=== PATIENT | female | born 2000 | race Caucasian/White ===

== ENCOUNTER 2022-01-03 16:52 | Inpatient (IN) ==
[2022-01-03] MEDS ORDERED: SODIUM CHLORIDE 0.9% 500 ML IV ONE (17:45)
--- NOTE | 2022-01-03 17:50 | Emergency Department Note ---
Impression & Plan Acute blood loss anemia, Ulcerative colitis with rectal bleeding, Right-sided chest pain, COVID Admit to the [facility] ED Provider Note NAME: KAT ECHOLS AGE: 21 SEX: F ARRIVES VIA: Walk-In INFORMANT: Patient ED PROVIDER(S): Noy Alonzo DO CHIEF COMPLAINT: Right-sided chest pain PLAN: Disposition: Admit to the [facility] Condition: Stable MEDICAL DECISION MAKING: This is a 21-year-old female patient presents to the emergency department with right-sided chest pain. The patient had a COVID-positive test today. She has a history of ulcerative colitis and takes Humira. She contacted the nurse helpline and explained that she was having some chest pain right-sided greater than left and they directed her here for evaluation. Patient is vaccinated against COVID and had COVID approximately 7 months ago. The patient had a negative D-dimer to rule out PE but was noted to be anemic with a hemoglobin of 8. In reviewing records from [facility], the patient's recent hemoglobin was 8.3. The patient continues to have bright red blood from her rectum and continued abdominal pain. She was prescribed budesonide and mesalamine but had not started taking them yet. The patient was typed and crossed here in the emergency department and consented for blood transfusion. I have discussed the case with [facility] and they will evaluate for further management. Triage Nursing notes reviewed and agree with them. Vital Signs: reviewed and remarkable for tachycardia Differential diagnosis: PE, costochondritis, pneumonia, anemia, COVID-19 ER treatment provided: IV normal saline IV packed red blood cell transfusion Diagnostics interpreted by me: ECG: Normal sinus rhythm at a rate of [address] segment elevation or signs of ischemia. There is no ectopy Cardiac Monitoring: Sinus tachycardia at 103 Laboratory studies: See below Imaging studies: As per radiology Portable chest x-ray: See repor HPI: 21/F arrives for evaluation of right-sided chest pain. The patient developed a cough, sore throat, nasal congestion 3 days ago. She took a COVID test today and found that was positive. She began to have some chest pain with the right side being worse than the left. She called a nurse helpline and they suggested she come to the emergency department for evaluation. The patient is vaccinated against COVID-19 and has received a booster shot. She did test positive for COVID approximately 7 months ago and again today. ROS: See above HPI for pertinent positives & negatives. A total of 10 systems reviewed and were otherwise negative. 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 HOME MEDICATIONS:See list ALLERGIES:None VITALS:See Below PHYSICAL EXAMINATION: HEENT: Head - normocephalic and atraumatic. Pupils are equal, round, and reactive to light. Extraocular eye muscles are intact, and sclera are anicteric. Nose - moist nasal mucosa without discharge. Mouth - moist buccal mucosa. Oropharynx is nonerythematous and there is no tonsillar exudate or edema noted. Neck: Supple; no cervical lymphadenopathy or thyromegaly Heart: Regular rate and rhythm. There is a normal S1 and S2 with no murmurs, clicks, or gallops appreciated. Lungs: Clear to auscultation bilaterally with no wheezes, rales, or rhonchi. Abdomen: Soft, completely nontender, nondistended, with good bowel sounds. Ther e are no palpable pulsatile masses or hepatosplenomegaly. There is no guarding, rigidity, or rebound noted. Extremities: No evidence of cyanosis, clubbing, or edema. There are easily palpable peripheral pulses. Skin: Pale, warm and dry with good turgor and no rashes. ED COURSE: Times/Reassessments: 1700: The patient was evaluated in room A4. An order was placed for continuous cardiac monitoring. The patient is in sinus tachycardia at 103. A twelve-lead EKG was obtained as described above. An IV lock was initiated and labs were drawn as above. Patient had a portable chest x-ray performed. The patient was typed and crossed for 2 units of packed red blood cells. I discussed the case with Dr. Monaco who will evaluate the patient for further management. Noy Alonzo DO Past Med/Surg History Medical History Acute blood loss anemia Anxiety Ulcerative colitis with rectal bleeding Social History Smoking Status: Current every day smoker Hx Alcohol Use: Yes Alcohol type: hard liquor Hx Substance Use: No Preferred Language: Kinyarwanda Communication Ability: Effective Taper Machine Required: No Beliefs That Will Affect Care: None Current Living Situation: Other Current Living Situation Comment: Apartment with roommates Other Information That Helps Us Care for You: No Feels Safe at Home: Yes Safety Concerns: Feels Safe At This Time Assistive Devices: None Allergies Allergies Allergy/AdvReac Type Severity Reaction Status Date / Time No Known Allergies Allergy Unverified 01/03/22 18:28 Home Meds Home Medications Medication Instructions Recorded Confirmed adalimumab 40 mg/0.4 mL 40 mg subcut .EVERY 2 WEEKS 01/03/22 01/03/22 subcutaneous pen kit (Humira(CF) Pen) budesonide 9 mg tablet,delayed and 9 mg PO DAILY 01/03/22 01/03/22 extended release lisdexamfetamine 40 mg capsule 40 mg PO DAILY 01/03/22 01/03/22 (Vyvanse) mesalamine 1.2 gram tablet,delayed 1.2 g PO UD 01/03/22 01/03/22 release sertraline 100 mg tablet 100 mg PO DAILY 01/03/22 01/03/22 Results & Data (ED) Vital Signs Vital Signs - 24 hr 01/03/22 16:55 01/03/22 17:36 01/03/22 18:30 Temperature 36.3 C L Temperature Source Temporal Artery Scan Pulse Rate 105 H Pulse Rate from SpO2 Sensor Pulse Rhythm Regular Pulse Strength Normal Respiratory Rate 20 Respiratory Effort / Characteristics Non-Labored Spontaneous Respiratory Depth Normal Respiratory Pattern Regular Blood Pressure 114/74 101/65 Blood Pressure Mean 87 77 Blood Pressure Position Sitting Pulse Oximetry 99 Oxygen Delivery Method Room Air Room Air Sepsis Recent Fever Within 48 Hours No Sepsis New/Unexplained Change in Mental Status No Sepsis Action Taken by Nursing No Action Required 01/03/22 18:30 01/03/22 19:00 01/03/22 19:00 Temperature Temperature Source Pulse Rate 82 79 Pulse Rate from SpO2 Sensor 82 79 Pulse Rhythm Pulse Strength Respiratory Rate 12 17 Respiratory Effort / Characteristics Respiratory Depth Respiratory Pattern Blood Pressure 103/66 Blood Pressure Mean 78 Blood Pressure Position Pulse Oximetry 100 99 Oxygen Delivery Method Sepsis Recent Fever Within 48 Hours Sepsis New/Unexplained Change in Mental Status Sepsis Action Taken by Nursing 01/03/22 20:00 Temperature Temperature Source Pulse Rate 80 Pulse Rate from SpO2 Sensor Pulse Rhythm Pulse Strength Respiratory Rate 24 Respiratory Effort / Characteristics Respiratory Depth Respiratory Pattern Blood Pressure 115/74 Blood Pressure Mean 87 Blood Pressure Position Pulse Oximetry 97 Oxygen Delivery Method Sepsis Recent Fever Within 48 Hours Sepsis New/Unexplained Change in Mental Status Sepsis Action Taken by Nursing Laboratory Data Result diagrams: 01/04/22 06:02 01/04/22 06:02 Lab Results 01/03/22 01/03/22 01/03/22 Range/Units 17:36 17:36 17:36 WBC 5.93 (4.8-10.8) K/ul RBC 4.29 (3.93-5.22) M/uL Hgb 8.0 L (12.0-16.0) g/dl Hct 27.8 L (34.1-44.9) % MCV 64.8 L (80.0-100.0) fL MCH 18.6 L (25.0-34.0) pg MCHC 28.8 L (32.0-36.0) g/dL RDW Std Deviation 44.3 (36.4-46.3) fL RDW Coeff of Dulce 19.3 H (11.5-14.5) % Plt Count 405 H (130-400) K/uL MPV 8.5 L (9.4-12.3) fL Immature Gran % (Auto) 0.2 % Neut % (Auto) 67.0 % Lymph % (Auto) 16.4 % [place] % (Auto) 15.3 % Eos % (Auto) 0.8 % Baso % (Auto) 0.3 % Neut # (Auto) 3.97 (1.4-6.5) K/uL Lymph # (Auto) 0.97 L (1.2-3.4) K/uL [place] # (Auto) 0.91 H (0.24-0.82) K/uL Eos # (Auto) 0.05 (0-0.50) K/uL Baso # (Auto) 0.02 (0-0.2) K/uL Immature Gran # (Auto) 0.01 (0.00-0.02) K/uL Polychromasia 1+ Hypochromasia Present Microcytosis Present ESR (0-20) mm/hr D-Dimer 410 (0-500) ug/L FEU Sodium 140 (136-145) mmol/L Potassium 3.3 L (3.5-5.1) mmol/L Chloride 106 (98-107) mmol/L Carbon Dioxide 28 (21-32) mmol/L Anion Gap 6 (3-11) BUN 5 L (6-23) mg/dl Creatinine 0.56 L (0.6-1.2) mg/dl Est Cr Clr Drug Dosing 138.4 ml/min Est GFR ( Amer) > 150.0 ml/min Est GFR (Non-Af Amer) 134.2 ml/min BUN/Creatinine Ratio 8.9 L (10-20) Glucose 112 H (70-99(Fasting)) mg/dl Calcium 9.0 (8.5-10.1) mg/dl Phosphorus 3.0 (2.5-4.9) mg/dl Magnesium 1.7 (1.7-2.4) mg/dl Iron (35-150) mcg/dl Transferrin (200-360) mg/dl Total Bilirubin 0.3 (0.2-1.0) mg/dl AST 20 (13-39) U/L ALT 13 (7-52) U/L Alkaline Phosphatase 54 (34-104) U/L Troponin I High Sens 2.8 (0-14) pg/ml Total Protein 7.0 (6.0-8.3) gm/dl Albumin 3.9 (3.4-5.0) gm/dl Globulin 3.1 (2.5-4.0) gm/dl Albumin/Globulin Ratio 1.3 (0.9-2) Lipase 18 (11-82) U/L SARS-CoV-2, RNA, NAAT (NEGATIVE) Blood Type Antibody Screen Crossmatch 01/03/22 01/03/22 01/03/22 Range/Units 17:36 17:48 19:30 WBC (4.8-10.8) K/ul RBC (3.93-5.22) M/uL Hgb (12.0-16.0) g/dl Hct (34.1-44.9) % MCV (80.0-100.0) fL MCH (25.0-34.0) pg MCHC (32.0-36.0) g/dL RDW Std Deviation (36.4-46.3) fL RDW Coeff of Dulce (11.5-14.5) % Plt Count (130-400) K/uL MPV (9.4-12.3) fL Immature Gran % (Auto) % Neut % (Auto) % Lymph % (Auto) % [place] % (Auto) % Eos % (Auto) % Baso % (Auto) % Neut # (Auto) (1.4-6.5) K/uL Lymph # (Auto) (1.2-3.4) K/uL [place] # (Auto) (0.24-0.82) K/uL Eos # (Auto) (0-0.50) K/uL Baso # (Auto) (0-0.2) K/uL Immature Gran # (Auto) (0.00-0.02) K/uL Polychromasia Hypochromasia Microcytosis ESR 37 H (0-20) mm/hr D-Dimer (0-500) ug/L FEU Sodium (136-145) mmol/L Potassium (3.5-5.1) mmol/L Chloride (98-107) mmol/L Carbon Dioxide (21-32) mmol/L Anion Gap (3-11) BUN (6-23) mg/dl Creatinine (0.6-1.2) mg/dl Est Cr Clr Drug Dosing ml/min Est GFR ( Amer) ml/min Est GFR (Non-Af Amer) ml/min BUN/Creatinine Ratio (10-20) Glucose (70-99(Fasting)) mg/dl Calcium (8.5-10.1) mg/dl Phosphorus (2.5-4.9) mg/dl Magnesium (1.7-2.4) mg/dl Iron < 10 L (35-150) mcg/dl Transferrin 343 (200-360) mg/dl Total Bilirubin (0.2-1.0) mg/dl AST (13-39) U/L ALT (7-52) U/L Alkaline Phosphatase (34-104) U/L Troponin I High Sens (0-14) pg/ml Total Protein (6.0-8.3) gm/dl Albumin (3.4-5.0) gm/dl Globulin (2.5-4.0) gm/dl Albumin/Globulin Ratio (0.9-2) Lipase (11-82) U/L SARS-CoV-2, RNA, NAAT POSITIVE A* (NEGATIVE) Blood Type Antibody Screen Crossmatch 01/03/22 Range/Units 19:55 WBC (4.8-10.8) K/ul RBC (3.93-5.22) M/uL Hgb (12.0-16.0) g/dl Hct (34.1-44.9) % MCV (80.0-100.0) fL MCH (25.0-34.0) pg MCHC (32.0-36.0) g/dL RDW Std Deviation (36.4-46.3) fL RDW Coeff of Dulce (11.5-14.5) % Plt Count (130-400) K/uL MPV (9.4-12.3) fL Immature Gran % (Auto) % Neut % (Auto) % Lymph % (Auto) % [place] % (Auto) % Eos % (Auto) % Baso % (Auto) % Neut # (Auto) (1.4-6.5) K/uL Lymph # (Auto) (1.2-3.4) K/uL [place] # (Auto) (0.24-0.82) K/uL Eos # (Auto) (0-0.50) K/uL Baso # (Auto) (0-0.2) K/uL Immature Gran # (Auto) (0.00-0.02) K/uL Polychromasia Hypochromasia Microcytosis ESR (0-20) mm/hr D-Dimer (0-500) ug/L FEU Sodium (136-145) mmol/L Potassium (3.5-5.1) mmol/L Chloride (98-107) mmol/L Carbon Dioxide (21-32) mmol/L Anion Gap (3-11) BUN (6-23) mg/dl Creatinine (0.6-1.2) mg/dl Est Cr Clr Drug Dosing ml/min Est GFR ( Amer) ml/min Est GFR (Non-Af Amer) ml/min BUN/Creatinine Ratio (10-20) Glucose (70-99(Fasting)) mg/dl Calcium (8.5-10.1) mg/dl Phosphorus (2.5-4.9) mg/dl Magnesium (1.7-2.4) mg/dl Iron (35-150) mcg/dl Transferrin (200-360) mg/dl Total Bilirubin (0.2-1.0) mg/dl AST (13-39) U/L ALT (7-52) U/L Alkaline Phosphatase (34-104) U/L Troponin I High Sens (0-14) pg/ml Total Protein (6.0-8.3) gm/dl Albumin (3.4-5.0) gm/dl Globulin (2.5-4.0) gm/dl Albumin/Globulin Ratio (0.9-2) Lipase (11-82) U/L SARS-CoV-2, RNA, NAAT (NEGATIVE) Blood Type O Positive Antibody Screen NEGATIVE Crossmatch See Detail Administered Medications Budesonide (Budesonide Ec 3 Mg Cap) 9 mg PO QAM ANKUSH Stop: 02/03/22 08:59 Last Admin: 01/04/22 07:58 Dose: 9 mg Documented By: RANDI Iron Sucrose 400 mg/ Sodium (Chloride) 270 mls @ 108 mls/hr IV TODAY@1200 ANKUSH Stop: 01/04/22 14:29 Last Admin: 01/04/22 12:00 Dose: 108 mls/hr Documented By: RANDI Melatonin (Melatonin 3 Mg Tab) 3 mg PO HS PRN PRN Reason: Sleep Stop: 02/02/22 23:41 Last Admin: 01/04/22 00:13 Dose: 3 mg Documented By: FLORY Mesalamine (Mesalamine 800 Mg Tabcr) 800 mg PO TID ANKUSH Stop: 02/03/22 08:59 Last Admin: 01/04/22 07:58 Dose: 800 mg Documented By: RANDI Miscellaneous (Vyvanse~Order Awaiting Action) 1 each N/A QS ANKUSH Stop: 02/03/22 07:59 Last Admin: 01/04/22 10:38 Dose: Not Given Documented By: RANDI Sertraline HCl (Sertraline Hcl 100 Mg Tablet) 100 mg PO DAILY ANKUSH Stop: 02/03/22 08:59 Last Admin: 01/04/22 07:58 Dose: 100 mg Documented By: RANDI Discontinued Medications Sodium Chloride (Nss) 500 mls @ 999 mls/hr IV .Q31M ONE Stop: 01/03/22 18:15 Last Infusion: 01/03/22 19:06 Dose: 0 mls/hr Documented By: Admin: 01/03/22 18:14 Dose: 999 mls/hr Documented By: GASTON Potassium Chloride (Potassium Chloride Crtab 20 Meq Tabcr) 40 meq PO NOW STA Stop: 01/03/22 19:51 Last Admin: 01/03/22 20:28 Dose: 40 meq Documented By: KMJohnny Imaging Data Radiologist's Impression: Chest X-Ray 01/03/22 17:36 XR chest 1V portable CLINICAL HISTORY: Atypical chest pain. COMPARISON STUDY: No previous studies for comparison. FINDINGS: Lung volumes are normal. Lungs are clear. There is no pneumothorax or pleural effusion. Cardiac size is normal. Mediastinal contours are normal. There is no evidence for pulmonary edema. IMPRESSION: No acute cardiopulmonary findings. ACT 112: Negative or not required by law. Electronically signed by: Bob Saunders M.D. 01/03/2022 6:57 PM Discharge Plan Visit Data Chief Complaint: Illness Stated Complaint: CHEST PAINS, COUGH, CONGESTED, COVID POSITIVE ED Provider: Noy Alonzo Discharge Problem: Acute blood loss anemia, Ulcerative colitis with rectal bleeding, Right-sided chest pain, COVID Patient Disposition: Admitted As Inpatient Discharge Instructions Interventions: ED Discharge Assessment Last Done: 01/03/22 21:31 : Ulcerative colitis with rectal bleeding Qualifiers: Ulcerative colitis location: unspecified ulcerative colitis location Qualified Code(s): K51.911 - Ulcerative colitis, unspecified with rectal bleeding
[2022-01-03 18:12] LABS: D Dimer 410 ug/L FEU (0-500)
[2022-01-03 18:25] LABS: Alanine Aminotransferase 13 U/L (7-52); Albumin Globulin Ratio 1.3 (0.9-2); Albumin Level 3.9 gm/dl (3.4-5.0); Alkaline Phosphatase 54 U/L (34-104); Anion Gap 6 (3-11); Aspartate Aminotransferase 20 U/L (13-39); BUN Creatinine Ratio 8.9 (10-20); Bilirubin,Total 0.3 mg/dl (0.2-1.0); Blood Urea Nitrogen 5 mg/dl (6-23); Carbon Dioxide 28 mmol/L (21-32); Chloride 106 mmol/L (98-107); Creatinine Clr Calc Pharmacy 138.4 ml/min; Est GFR (African American) > 150.0 ml/min; Est GFR (Non-African American) 134.2 ml/min; Globulin 3.1 gm/dl (2.5-4.0); Glucose 112 mg/dl (70-99(Fasting)); Lipase 18 U/L (11-82); Potassium 3.3 mmol/L (3.5-5.1); Sodium 140 mmol/L (136-145)
[2022-01-03 18:26] LABS: Troponin I High Sensitivity 2.8 pg/ml (0-14)
[2022-01-03 18:51] LABS: Basophils # (auto) 0.02 K/uL (0-0.2); Basophils % (auto) 0.3 %; Eosinophils # (auto) 0.05 K/uL (0-0.50); Eosinophils % (auto) 0.8 %; Hematocrit (blood only) 27.8 % (34.1-44.9); Hypochromasia Present; Immature Granulocytes # (auto) 0.01 K/uL (0.00-0.02); Immature Granulocytes % (auto) 0.2 %; Lymphocytes # (auto) 0.97 K/uL (1.2-3.4); Lymphocytes % (auto) 16.4 %; Mean Corpuscular Hemoglobin 18.6 pg (25.0-34.0); Mean Corpuscular Hgb Conc 28.8 g/dL (32.0-36.0); Mean Corpuscular Volume 64.8 fL (80.0-100.0); Mean Platelet Volume 8.5 fL (9.4-12.3); Microcytosis Present; Monocytes # (auto) 0.91 K/uL (0.24-0.82); Monocytes % (auto) 15.3 %; Neutrophils # (auto) 3.97 K/uL (1.4-6.5); Platelet Count 405 K/uL (130-400); Polychromasia 1+; RDW Coefficient of Variation 19.3 % (11.5-14.5); RDW Standard Deviation 44.3 fL (36.4-46.3); Red Blood Count 4.29 M/uL (3.93-5.22); White Blood Count 5.93 K/ul (4.8-10.8)
--- NOTE | 2022-01-03 18:58 | XRay Report ---
XR chest 1V portable CLINICAL HISTORY: Atypical chest pain. COMPARISON STUDY: No previous studies for comparison. FINDINGS: Lung volumes are normal. Lungs are clear. There is no pneumothorax or pleural effusion. Car diac size is normal. Mediastinal contours are normal. There is no evidence for pulmonary edema. IMPRESSION: No acute cardiopulmonary findings. ACT 112: Negative or not required by law. Electronically signed by: Bob Saunders M.D. 01/03/2022 6:57 PM
[2022-01-03] MEDS ORDERED: SODIUM CHLORIDE 0.9% 250 ML IV PRN (19:41)
[2022-01-03] MEDS ORDERED: POTASSIUM CHLORIDE CRTAB 20 MEQ TABCR PO STA (19:50)
--- NOTE | 2022-01-03 19:51 | History & Physical Report ---
Date of Service January 03, 2022 Assessment & Plan (1) Acute blood loss anemia: Plan: -Admit to med/surge -Patient is currently afebrile, hemodynamically stable, and stable on room air -acute blood loss anemia is likely due to her ongoing UC flare -Hgb is currently 8.0, unsure of patient's previous baseline -CBC from today showing a microcytic/hypochromic anemia most likely secondary to iron deficiency as well -Ordering Iron studies -Monitor AM CBC and transfuse as needed; patient was consented and type & screen was ordered -Will start her Budesonide and mesalamine tonight and monitor for improvement, if she is not improving can consider rectal mesalamine, oral glucocorticoids, and GI cosult (2) Ulcerative colitis with rectal bleeding: Plan: -See acute blood loss anemia -Initiate Budesonide 9mg po daily -Discussed with Pharmacy - will treat with Mesalamine 800mg po TID as indicated for moderate active UC flare (3) COVID: Plan: -Tested positive on 2 home tests and in PCR today -Stable on room air -Only needs symptomatic treatment at this time -tylenol for pain/fever, Robitussin for cough -Ordered ferritin, ESR, CRP, follow-up with results (4) Hypokalemia: Plan: -Noted to be at 3.3 today -Giving PO KCL -Monitor am electrolytes on BMP and replete as needed (5) Right-sided chest pain: Plan: -Patient has reproducible right chest/sternal pain which developed after her cough started -Likely musculoskeletal from her cough and history or arthritis -Will give tylenol and monitor for improvement in symptoms (6) Anxiety: Plan: -Patient is on sertraline and Vyvanse Plan The patient was seen with and discussed with Dr. Monaco at the time of the exam History of Present Illness Chief Complaint: Right-sided chest pain Primary Care Provider: [facility] Patricia is a 21 year old female with a PMH significant for Ulcerative Colitis (previously on Humira), arthritis, and anxiety who presented to the [facility] ED on 01/03/22 with a chief complaint of right-sided chest pain. Of note, the patient was positive when taking a home covid test today. In the Ed the patient was found to be afebrile, hemodynamically stable, and stable on room air. In the ED the patient was found to have a microcytic/hypochromic anemia, potassium of 3.3, and to be covid positive. Chest xray was noted to be negative for acute findings. At the time of the exam the patient was resting in bed in no acute distress. She states that she has been dealing with a UC flare and went to her PCP on 01/01. She states that he prescribed her mesalamine and budesonide but she has not had a chance to start them yet. She is no longer on Humira due to her having Humira antibodies. She is currently have approximately 5 bloody bowel movements daily. She states that she developed a productive cough and that her sputum is white to yellow. When she woke up this AM she developed right chest pain which is exacerbated with cough and deep inspiration. Allergies Allergy/AdvReac Type Severity Reaction Status Date / Time No Known Allergies Allergy Unverified 01/03/22 18:28 Home Medications Medication Instructions Recorded Confirmed Type adalimumab 40 mg/0.4 mL 40 mg subcut .EVERY 2 WEEKS 01/03/22 01/03/22 History subcutaneous pen kit (Humira(CF) Pen) budesonide 9 mg tablet,delayed and 9 mg PO DAILY 01/03/22 01/03/22 History extended release lisdexamfetamine 40 mg capsule 40 mg PO DAILY 01/03/22 01/03/22 History (Vyvanse) mesalamine 1.2 gram tablet,delayed 1.2 g PO UD 01/03/22 01/03/22 History release sertraline 100 mg tablet 100 mg PO DAILY 01/03/22 01/03/22 History Past Med/Surg History Medical History Acute blood loss anemia Anxiety Ulcerative colitis with rectal bleeding Social History Smoking Status: Current every day smoker Hx Alcohol Use: Yes Alcohol type: hard liquor Hx Substance Use: No Preferred Language: Icelandic Communication Ability: Effective Blocking Machine Operator Required: No Beliefs That Will Affect Care: None Current Living Situation: Other Current Living Situation Comment: Apartment with roommates Other Information That Helps Us Care for You: No Feels Safe at Home: Yes Safety Concerns: Feels Safe At This Time Assistive Devices: Glasses Review of Systems Review of Systems: Denies current fever, chills, headache, changes in vision, hearing, taste, and smell, SOB, cough, vomiting, hematemesis, melena, dysuria, hematuria, and recent falls. All systems have been reviewed and are otherwise negative. Physical Exam Physical Exam: Physical Exam: General: In no acute distress, stated age, well-nourished, good hygiene HEENT: Normocephalic, atraumatic, no scleral icterus, pupils around round, symmetrical, and reactive to light, moist mucus membranes, trachea midline, no thyromegaly Chest/Pulm: Tenderness to palpation over the right upper chest and sternum, No respiratory distress, symmetrical chest expansion, clear breath sounds throughout Cardiac: RRR, no murmurs noted Abdomen: Negative for ascites and bruising, normoactive bowel sounds, soft, non-tender to palpation throughout Musculoskeletal: Symmetrical and without signs of acute trauma, upper and lower extremities with full ROM, no atrophy, spasticity, or flaccidity Extremities: Radial, dorsalis pedis, and posterior tibial pulses are intact and symmetrical, no edema noted in the BL LE's Skin: Warm, dry, no rashes , lesions, or scars noted Neuro: Alert and oriented to person, place, month, year, and president, no focal defects, CN II-XII tested and intact, finger to nose test negative, no tremors noted Psych: No acute distress, calm and cooperative during the exam Results & Data Results & Data ([facility]) Vital Signs (Past 12 Hours) Vital Signs Temp Pulse Resp BP Pulse Ox O2 Del Method 01/03/22 19:00 79 17 99 01/03/22 19:00 103/66 01/03/22 18:30 82 12 100 01/03/22 18:30 101/65 01/03/22 17:36 Room Air 01/03/22 16:55 36.3 C L 105 H 20 114/74 99 Room Air Laboratory Results Abnormal lab results 01/03/22 01/03/22 Range/Units 17:36 17:36 Hgb 8.0 L (12.0-16.0) g/dl Hct 27.8 L (34.1-44.9) % MCV 64.8 L (80.0-100.0) fL MCH 18.6 L (25.0-34.0) pg MCHC 28.8 L (32.0-36.0) g/dL RDW Coeff of Dulce 19.3 H (11.5-14.5) % Plt Count 405 H (130-400) K/uL MPV 8.5 L (9.4-12.3) fL Lymph # (Auto) 0.97 L (1.2-3.4) K/uL [place] # (Auto) 0.91 H (0.24-0.82) K/uL Potassium 3.3 L (3.5-5.1) mmol/L BUN 5 L (6-23) mg/dl Creatinine 0.56 L (0.6-1.2) mg/dl BUN/Creatinine Ratio 8.9 L (10-20) Glucose 112 H (70-99(Fasting)) mg/dl Diagnostic Findings Chest X-Ray 01/03/22 17:36 XR chest 1V portable CLINICAL HISTORY: Atypical chest pain. COMPARISON STUDY: No previous studies for comparison. FINDINGS: Lung volumes are normal. Lungs are clear. There is no pneumothorax or pleural effusion. Cardiac size is normal. Mediastinal contours are normal. There is no evidence for pulmonary edema. IMPRESSION: No acute cardiopulmonary findings. ACT 112: Negative or not required by law. Electronically signed by: Bob Saunders M.D. 01/03/2022 6:57 PM ECG Additional Comments: Normal sinus rhythm Cannot rule out Anterior infarct , age undetermined Abnormal ECG No previous ECGs available Code Status & VTE Plan Code Status Full code VTE Prophylaxis Plan VTE Prophylaxis will be ordered: Yes Supervising Physician Co-Signing Physician Notes Patient seen and examined, chart reviewed, case discussed with KATHRINE Estrada and I agree with the assessment and plan as above. In brief, patient is a 21yo female with UC presenting with ongoing UC flare and Covid-19 infection. She follows with GI near her home town, last seen on 01/01/22 - was given prescription for Mesalamine and Budesonide which she has yet to start. No SOB. She does have some reproducible right sided pleuritic chest pain that is worse with cough. Patient afebrile, HD stable, Nontoxic in appearance Skin - warm, dry, intact, no rashes HEENT - NC/AT, PERRL, MMM, no oral ulcers Heart - +S1/S2, regular, no m/r/g Lungs - CTA Abdomen is soft, NT/ND Labs and images reviewed Microcytic anemia Platelet =405 Assessment/Plan -Initiate Mesalamine and budesonide -Monitor Covid symptoms -Transfuse if Hgb < 7, ongoing bleed -Iron studies pending - may benefit from IV Venofer -Remainder as above PG Care Time/CCT Total # of Minutes Spent Total Time Spent with Patient: Total time spent is greater than 50% in coordination of care (as documented) at patient's floor/unit and/or counseling patient: [place] [address] Initial Inpt Care Lvl 3 Patient Type New Medical Decision Making Straight Forward Diagnoses Acute blood loss anemia D62 Ulcerative colitis with rectal bleeding K51.911 Ulcerative colitis location: unspecified ulcerative colitis location COVID U07.1 Hypokalemia E87.6 Right-sided chest pain R07.9 Anxiety F41.9 (1) Ulcerative colitis with rectal bleeding Ulcerative colitis location: unspecified ulcerative colitis location Qualified Code(s): K51.911 - Ulcerative colitis, unspecified with rectal bleeding
[2022-01-03 20:09] LABS: Magnesium 1.7 mg/dl (1.7-2.4)
[2022-01-03 21:00] LABS: Iron < 10 mcg/dl (35-150); Transferrin 343 mg/dl (200-360)
[2022-01-03] MEDS ORDERED: ACETAMINOPHEN 325 MG TAB PO PRN (21:54)
[2022-01-03] MEDS ORDERED: guaiFENesin SUGAR FREE 200 MG/10 ML UDC PO PRN (21:54)
[2022-01-03 22:03] LABS: Folate (Folic Acid) 15.22 ng/ml (>5.38)
[2022-01-03 22:17] LABS: C Reactive Protein < 0.50 mg/dl (0-0.5)
[2022-01-03 22:32] LABS: Ferritin 1.9 ng/ml (8-388)
[2022-01-03] MEDS ORDERED: MELATONIN 3 MG TAB PO PRN (23:42)
[2022-01-04 06:17] LABS: Hematocrit (blood only) 28.7 % (34.1-44.9); Hemoglobin 8.7 g/dl (12.0-16.0); Mean Corpuscular Hemoglobin 20.5 pg (25.0-34.0); Mean Corpuscular Hgb Conc 30.3 g/dL (32.0-36.0); Mean Corpuscular Volume 67.5 fL (80.0-100.0); Mean Platelet Volume 8.7 fL (9.4-12.3); Platelet Count 309 K/uL (130-400); RDW Coefficient of Variation 22.1 % (11.5-14.5); RDW Standard Deviation 52.3 fL (36.4-46.3); Red Blood Count 4.25 M/uL (3.93-5.22); White Blood Count 5.76 K/ul (4.8-10.8)
[2022-01-04 06:46] LABS: Anion Gap 8 (3-11); BUN Creatinine Ratio 7.1 (10-20); Blood Urea Nitrogen 3 mg/dl (6-23); Calcium 8.7 mg/dl (8.5-10.1); Carbon Dioxide 24 mmol/L (21-32); Chloride 107 mmol/L (98-107); Creatinine Clr Calc Pharmacy 184.5 ml/min; Est GFR (African American) > 150.0 ml/min; Est GFR (Non-African American) 147.6 ml/min; Glucose 82 mg/dl (70-99(Fasting)); Potassium 3.7 mmol/L (3.5-5.1); Sodium 139 mmol/L (136-145)
[2022-01-04] MEDS: MESALAMINE 800 MG TABCR PO SCH ×2 (07:58→15:17)
[2022-01-04] MEDS ORDERED: SERTRALINE HCL 100 MG TABLET PO SCH (09:00)
[2022-01-04] MEDS ORDERED: BUDESONIDE EC 3 MG CAP PO SCH (09:00)
[2022-01-04] MEDS ORDERED: IRON SUCROSE 400 MG in SODIUM CHLORIDE 0.9% 250 ML IV SCH (12:00)
[2022-01-04 12:07] LABS: Adenovirus F 40/41 PCR Not Detected (NotDetected); Astrovirus PCR Not Detected (NotDetected); Campylobacter PCR Not Detected (NotDetected); Clostridium diff Toxin A/B PCR Not Detected (NotDetected); Cryptosporidium PCR Not Detected (NotDetected); Cyclospora cayetanensis PCR Not Detected (NotDetected); Entamoeba histolytica PCR Not Detected (NotDetected); Enteroaggregative E.coli(EAEC) Not Detected (NotDetected); Enteropathogenic E.coli (EPEC) Not Detected (NotDetected); Enterotoxigenic E.coli (ETEC) Not Detected (NotDetected); Giardia lamblia PCR Not Detected (NotDetected); Norovirus GI/GII PCR Not Detected (NotDetected); Plesiomonas shigelloides PCR Not Detected (NotDetected); Rotavirus A PCR Not Detected (NotDetected); Salmonella PCR Not Detected (NotDetected); Sapovirus PCR Not Detected (NotDetected); Shiga-like Toxin E.coli (STEC) Not Detected (NotDetected); Shigella/Enteroinvasive E.coli Not Detected (NotDetected); Vibrio cholerae PCR Not Detected (NotDetected); Vibrio species PCR Not Detected (NotDetected); Yersinia enterocolitica PCR Not Detected (NotDetected)
--- NOTE | 2022-01-04 13:46 | Discharge Summary ---
Date of Service January 04, 2022 Admission HPI Per Admitting Provider Patricia is a 21 year old female with a PMH significant for Ulcerative Colitis (previously on Humira), arthritis, and anxiety who presented to the [facility] ED on 01/03/22 with a chief complaint of right-sided chest pain. Of note, the patient was positive when taking a home covid test today. In the Ed the patient was found to be afebrile, hemodynamically stable, and stable on room air. In the ED the patient was found to have a microcytic/hypochromic anemia, potassium of 3.3, and to be covid positive. Chest xray was noted to be negative for acute findings. At the time of the exam the patient was resting in bed in no acute distress. She states that she has been dealing with a UC flare and went to her PCP on 01/01. She states that he prescribed her mesalamine and budesonide but she has not had a chance to start them yet. She is no longer on Humira due to her having Humira antibodies. She is currently have approximately 5 bloody bowel movements daily. She states that she developed a productive cough and that her sputum is white to yellow. When she woke up this AM she developed right chest pain which is exacerbated with cough and deep inspiration. Principal Diagnosis Covid, UC flare Discharge Exam General:in no acute distress, pleasant HEENT:Normocephalic, atraumatic, no scleral icterus, moist mucus membranes, trachea midline Chest/Pulm:Tenderness to palpation over the right upper chest and sternum, No respiratory distress, symmetrical chest expansion, clear breath sounds throughout Cardiac:RRR, no murmurs Abdomen:+BS, soft, vague diffuse tenderness to palpation, no guarding/rebound tenderness Extremities:Radial, dorsalis pedis, and posterior tibial pulses are intact and symmetrical, no edema noted in the BL LE's Skin:Warm, dry, no rashes Psych: AOx3, calm and cooperative Discharge Data Allergies Allergy/AdvReac Type Severity Reaction Status Date / Time No Known Allergies Allergy Unverified 01/03/22 18:28 Consultations 01/03/22 19:33 ED Decision to Admit Stat Ordered Studies Laboratory Results WBC 5.76 K/ul (4.8-10.8) 01/04/22 06:02 RBC 4.25 M/uL (3.93-5.22) 01/04/22 06:02 Hgb 8.7 g/dl (12.0-16.0) L 01/04/22 06:02 Hct 28.7 % (34.1-44.9) L 01/04/22 06:02 MCV 67.5 fL (80.0-100.0) L 01/04/22 06:02 MCH 20.5 pg (25.0-34.0) L 01/04/22 06:02 MCHC 30.3 g/dL (32.0-36.0) L 01/04/22 06:02 RDW Std Deviation 52.3 fL (36.4-46.3) H 01/04/22 06:02 RDW Coeff of Dulce 22.1 % (11.5-14.5) H 01/04/22 06:02 Plt Count 309 K/uL (130-400) 01/04/22 06:02 MPV 8.7 fL (9.4-12.3) L 01/04/22 06:02 Immature Gran % (Auto) 0.2 % 01/03/22 17:36 Neut % (Auto) 67.0 % 01/03/22 17:36 Lymph % (Auto) 16.4 % 01/03/22 17:36 [place] % (Auto) 15.3 % 01/03/22 17:36 Eos % (Auto) 0.8 % 01/03/22 17:36 Baso % (Auto) 0.3 % 01/03/22 17:36 Neut # (Auto) 3.97 K/uL (1.4-6.5) 01/03/22 17:36 Lymph # (Auto) 0.97 K/uL (1.2-3.4) L 01/03/22 17:36 [place] # (Auto) 0.91 K/uL (0.24-0.82) H 01/03/22 17:36 Eos # (Auto) 0.05 K/uL (0-0.50) 01/03/22 17:36 Baso # (Auto) 0.02 K/uL (0-0.2) 01/03/22 17:36 Immature Gran # (Auto) 0.01 K/uL (0.00-0.02) 01/03/22 17:36 Polychromasia 1+ 01/03/22 17:36 Hypochromasia Present 01/03/22 17:36 Microcytosis Present 01/03/22 17:36 ESR 37 mm/hr (0-20) H 01/03/22 17:36 D-Dimer 410 ug/L FEU (0-500) 01/03/22 17:36 Sodium 139 mmol/L (136-145) 01/04/22 06:02 Potassium 3.7 mmol/L (3.5-5.1) 01/04/22 06:02 Chloride 107 mmol/L (98-107) 01/04/22 06:02 Carbon Dioxide 24 mmol/L (21-32) 01/04/22 06:02 Anion Gap 8 (3-11) 01/04/22 06:02 BUN 3 mg/dl (6-23) L 01/04/22 06:02 Creatinine 0.42 mg/dl (0.6-1.2) L 01/04/22 06:02 Est Cr Clr Drug Dosing 184.5 ml/min 01/04/22 06:02 Est GFR ( Amer) > 150.0 ml/min 01/04/22 06:02 Est GFR (Non-Af Amer) 147.6 ml/min 01/04/22 06:02 BUN/Creatinine Ratio 7.1 (10-20) L 01/04/22 06:02 Glucose 82 mg/dl (70-99(Fasting)) 01/04/22 06:02 Calcium 8.7 mg/dl (8.5-10.1) 01/04/22 06:02 Phosphorus 3.0 mg/dl (2.5-4.9) 01/03/22 17:36 Magnesium 1.7 mg/dl (1.7-2.4) 01/03/22 17:36 Iron < 10 mcg/dl (35-150) L 01/03/22 17:48 Transferrin 343 mg/dl (200-360) 01/03/22 17:48 Ferritin 1.9 ng/ml (8-388) L 01/03/22 21:11 Total Bilirubin 0.3 mg/dl (0.2-1.0) 01/03/22 17:36 AST 20 U/L (13-39) 01/03/22 17:36 ALT 13 U/L (7-52) 01/03/22 17:36 Alkaline Phosphatase 54 U/L (34-104) 01/03/22 17:36 Lactate Dehydrogenase 147 U/L (86-244) 01/03/22 21:11 Troponin I High Sens 2.8 pg/ml (0-14) 01/03/22 17:36 C-Reactive Protein < 0.50 mg/dl (0-0.5) 01/03/22 21:11 Total Protein 7.0 gm/dl (6.0-8.3) 01/03/22 17:36 Albumin 3.9 gm/dl (3.4-5.0) 01/03/22 17:36 Globulin 3.1 gm/dl (2.5-4.0) 01/03/22 17:36 Albumin/Globulin Ratio 1.3 (0.9-2) 01/03/22 17:36 Lipase 18 U/L (11-82) 01/03/22 17:36 Vitamin B12 323 pg/ml (180-914) 01/03/22 21:11 Folate 15.22 ng/ml (>5.38) 01/03/22 21:11 Stl C. cayetanensis PCR Not Detected (NotDetected) 01/04/22 10:18 Stool Rotavirus A PCR Not Detected (NotDetected) 01/04/22 10:18 Stl Adenov F 40/41 PCR Not Detected (NotDetected) 01/04/22 10:18 Stool Astrovirus (PCR) Not Detected (NotDetected) 01/04/22 10:18 Stool Campylobacter PCR Not Detected (NotDetected) 01/04/22 10:18 Stl C. diff Tox A/B PCR Not Detected (NotDetected) 01/04/22 10:18 Stool Cryptosporidium PCR Not Detected (NotDetected) 01/04/22 10:18 Stl E.coli Shiga Tox PCR Not Detected (NotDetected) 01/04/22 10:18 Stl Enterotoxigenic E PCR Not Detected (NotDetected) 01/04/22 10:18 Stool EPEC (PCR) Not Detected (NotDetected) 01/04/22 10:18 Stool EAEC (PCR) Not Detected (NotDetected) 01/04/22 10:18 Stl E. histolytica PCR Not Detected (NotDetected) 01/04/22 10:18 Stool Giardia Lamblia PCR Not Detected (NotDetected) 01/04/22 10:18 Stool Salmonella PCR Not Detected (NotDetected) 01/04/22 10:18 Stool Sapovirus (PCR) Not Detected (NotDetected) 01/04/22 10:18 Stl P. shigelloides PCR Not Detected (NotDetected) 01/04/22 10:18 Stl Shigella/EIEC PCR Not Detected (NotDetected) 01/04/22 10:18 St Y.enterocolitica PCR Not Detected (NotDetected) 01/04/22 10:18 Stool Vibrio (PCR) Not Detected (NotDetected) 01/04/22 10:18 Stl Vibrio cholerae PCR Not Detected (NotDetected) 01/04/22 10:18 Stl Norovirus GI/GII PCR Not Detected (NotDetected) 01/04/22 10:18 SARS-CoV-2, RNA, NAAT POSITIVE (NEGATIVE) A* 01/03/22 19:30 Blood Type O Positive 01/03/22 19:55 Blood Type Recheck O Positive 01/03/22 20:23 Antibody Screen NEGATIVE 01/03/22 19:55 Crossmatch See Detail 01/03/22 19:55 Impressions Chest X-Ray 01/03/22 17:36 XR chest 1V portable CLINICAL HISTORY: Atypical chest pain. COMPARISON STUDY: No previous studies for comparison. FINDINGS: Lung volumes are normal. Lungs are clear. There is no pneumothorax or pleural effusion. Cardiac size is normal. Mediastinal contours are normal. There is no evidence for pulmonary edema. IMPRESSION: No acute cardiopulmonary findings. ACT 112: Negative or not required by law. Electronically signed by: Bob Saunders M.D. 01/03/2022 6:57 PM Hospital Course (1) COVID: 21 year old female with a PMH significant for Ulcerative Colitis (previously on Humira), arthritis, and anxiety who presented to the [facility] ED on 01/03/22 with a chief complaint of right-sided chest pain. Of note, the patient was positive when taking a home covid test today. COVID Right sided chest pain -Tested positive on 2 home tests and PCR in ED, day 3 symptoms -reproducible chest pain likely secondary to rib pain from cough -Stable on room air -cont. symptomatic treatment at home, antitussives for cough, tylenol for pain -rx for paxlovid given since she is immunocompromised -f/u PCP Acute blood loss anemia UC with rectal bleeding Iron deficiency anemia -currently afebrile, hemodynamically stable, and stable on room air -acute blood loss anemia is likely due to combination of chronic uncontrolled UC flare and iron deficiency anemia -Hgb 8.7 s/p 1 unit blood given in ED -Iron and ferritin extremely low - IV venofer x1 given. Begin 325mg po ferrous sulfate q48h going forward. -Continue Budesonide and mesalamine, f/u with her GI doc outpatient. Hypokalemia, resolved -replenished, K 3.7 Anxiety -cont. home sertraline and Vyvanse (2) Acute blood loss anemia: (3) Ulcerative colitis with rectal bleeding: (4) Anxiety: (5) Right-sided chest pain: (6) Hypokalemia: Total Time Total Time Spent Total Time Spent (In Minutes): <30 Discharge Plan Discharge Items Patient Disposition: Home - Self-Care Reason For Visit: RIGHT CHEST PAIN Discharge Diagnosis: COVID, UC flare Activity: Per Instructions section Non-emergency contact: Primary Care Provider and Sign Poster Call non-emergency contact if: you have any medication questions and your symptoms worsen Follow-up/Referrals: [facility] [Primary Care Provider] - Diet: Regular Addtl Attending Provider Instructions: You came into the hospital for right-sided chest pain and tested positive for COVID which you had already known from a home test couple days ago. Your chest pain is most likely secondary to rib pain from coughing. The pain should improve with time as you can use Tylenol for relief. As for the positive COVID, we will treat this conservatively with rest, hydration, [id number] cough medicine. Since you are immunocompromised and symptoms started couple days ago, it is reasonable for you to start Paxlovid treatment which we have sent to your pharmacy. Otherwise your vitals have been stable and her oxygen saturation is appropriate. As for your history of ulcerative colitis, you should follow-up with your GI doc later this week to let them know of your current status. I believe you will be remaining on your Humira and have now started mesalamine and budesonide going forward. Hopefully these new medications will better control your ulcerative colitis and decrease the blood in your stool. Here in the hospital due to a low hemoglobin and mild hemodynamic instability, you were given 1 unit of blood and subsequent increase in her hemoglobin. Your iron levels were also extremely low so in the hospital we gave you an IV dose of iron and will want you to start an oral dose every other day going forward. Due to your insurance I think a better option for you would be to tack picker the iron [id number]. Medications listed below. New Medications: -Paxlovid: sent to pharmacy- take as directed -Ferrous sulfate: tack picker over the counter- 325mg oral ferrous sulfate every other day Pending Studies at Discharge: No Stand-Alone Forms: My [facility] Medications and DC Order Prescriptions: New Paxlovid (EUA) 300 mg (150 mg x 2)-100 mg tablets,dose pack See Rx Instructions .ROUTE .COMPLEX Qty: 30 0RF Rx Instructions: take TWO 150 mg tablets of nirmatrelvir with ONE 100 mg tablet of ritonavir twice daily for 5 days Continued sertraline 100 mg tablet 100 mg PO DAILY Vyvanse 40 mg capsule 40 mg PO DAILY Humira(CF) Pen 40 mg/0.4 mL pen injector kit 40 mg SUBCUT .EVERY 2 WEEKS Rx Instructions: pt admits to missing dose for about a week mesalamine 1.2 gram tablet,delayed release (DR/EC) 1.2 g PO UD Rx Instructions: at pharmacy to be picked up and started budesonide 9 mg tablet,delayed and ext.release 9 mg PO DAILY Rx Instructions: not started yet Discharge Orders: Discharge Order (Routine); Ordered 01/04/22 Ordered By: Mitesh Kim/Other Patient Handouts: Understanding Deep Vein Thrombosis, DVT Complications, Preventing Deep Vein Thrombosis Admission Data Admit Date/Time: 01/03/22 20:15 Attending Provider: Gary Curiel Admit Provider: Jelly Monaco Primary Care Provider: [place] Other Providers: Jelly Monaco Other Interventions: Discharge Summary Assessment (RN) Last Done: 01/04/22 14:01 Supervising Physician Co-Signing Physician Notes I personally examined the patient and verified all multnai points of history and exam, discussed case, and agree with decision making with Dr White feeling ok overall wants to go home. Still has a cough and a little bit of chest pain. Bloody stools are on the better side of the same. Following actively with gastroenterology back homefeels they are quite responsive, had really not gotten started on the budesonide or mesalamine prior to admissionand therefore does not feel that any further intervention is needed. Would like paxlovid for her COVID Vitals noted, in general she is awake and alert pleasant no distress. HEENT normocephalic atraumatic mucous membranes moist. Breathing unlabored on room air no accessory muscle use no conversational dyspnea good effort. Her chest pain is very reproducible right-sided rib cage. Skin shows no rashes no pallor or icterus. COVIDfortunately fairly mildchest pain appears to be rib relatedgiven her immunocompromise paxlovid is reasonable. Discussed potential GI upset. Ulcerative colitiscontinue budesonide and mesalamineshe feels that she is slightly improved and is happy to continue on the current regimen. She will follow actively with her outpatient call manager. Iron deficiency anemiaalmost certainly due to chronic and ongoing GI blood loss from ulcerative colitiswas given a transfusion in the ER, given a dose of IV iron, started on p.o. iron. The main treatment will really be raining in the UC so that she is not losing as much blood, outpatient follow-up. Resident Activity Tracking Resident Involvement: Resident Care Provided Care Provided: Adult Hospital Medicine
--- NOTE | 2022-01-04 15:40 | Electrocardiogram Report ---
Test Reason : Blood Pressure : / mmHG Vent. Rate : 080 BPM Atrial Rate : 080 BPM P-R Int : 152 ms QRS Dur : 080 ms QT Int : 374 ms P-R-T Axes : 022 070 035 degrees QTc Int : 431 ms Normal sinus rhythm Cannot rule out Anterior infarct , age undetermined T wave abnormality, consider anterior ischemia Abnormal ECG No previous ECGs available Confirmed by Chip Youngblood ([id number]) on 01/04/2022 3:40:24 PM Referred By: REFERRED SELF Confirmed By:Chip Youngblood
--- NOTE | 2022-01-04 18:50 | Billing Data ---
Date of Service January 04, 2022 Coding Level of Care Code D/C DAY MANAGEMENT <30 MINS
== END 2022-01-04 16:44 | disposition home or self-care (01) | DRG 178 ==
LOC: ED 16:52 → SUATTDRO 20:15 → 4W 20:15